=== PATIENT | male | born 1970 | race African-American/Black ===

== ENCOUNTER 2017-03-30 11:45 | Emergency (ER) | payer MEDICAID ==
[2017-03-30 11:56] VITALS: BP 135/79
--- NOTE | 2017-03-30 12:40 | ED Physician Documentation ---
PD HPI UPPER EXT INJURY - Stated complaint Stated Complaint: RT ARM PX - Chief complaint Chief Complaint: Ext Problem - History obtained from History obtained from: Patient - History of Present Illness Location: Other (For the last 2 weeks or so he has had pain on the lateral side of the right elbow radiating down to the dorsal right wrist and worse with extension of the right wrist. 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.) Review of Systems Constitutional: reports: Reviewed and negative Throat: reports: Reviewed and negative Cardiac: reports: Reviewed and negative PD PAST MEDICAL HISTORY - Past Medical History Past Medical History: No - Past Surgical History Past Surgical History: Yes Ortho: Knee replacement - Present Medications Home Medications: Ambulatory Orders Medication Instructions Recorded Confirmed Meloxicam [Mobic] 7.5 mg PO BIDWM PRN #15 tablet 03/30/17 Tennis Elbow Brace 1 diaph TD ONCE #1 03/30/17 - Allergies Allergies/Adverse Reactions: Allergies Allergy/AdvReac Type Severity Reaction Status Date / Time Penicillins Allergy Anaphylaxis Verified 03/30/17 11:53 - Social History Does the pt smoke?: Yes Smoking Status: Current every day smoker Does the pt drink ETOH?: Yes ETOH Use: Wine, Beer, Liquor Does the pt have substance abuse?: Yes Substance Use and Type: Marijuana - Immunizations Immunizations are current?: Yes - POLST Patient has POLST: No PD ED PE NORMAL - Vitals Vital signs reviewed: Yes - General General: Alert and oriented X 3, No acute distress - Extremities Extremities: Other (Right elbow is focally tender over the lateral epicondyle, He has relatively painless range of motion passively and actively but without resistance of the Right elbow and wrist. He has a lot of pain with forceful extension of the right wrist. He has normal radial pulse, symmetric sensation throughout the upper extremities.) - Neuro Neuro: Alert and oriented X 3, Normal speech - Psych Psych: Normal mood, Normal affect Results - Vitals Vitals: Vital Signs - 24 hr 03/30/17 11:49 Temperature 36.9 C Heart Rate 76 Respiratory 16 Rate Blood Pressure 135/79 H O2 Saturation 97 Oxygen O2 Source Room air Departure - Departure Disposition: 01 Home, Self Care Clinical Impression: Lateral epicondylitis of right elbow Condition: Good Record reviewed to determine appropriate education?: Yes Instructions: ED Epicondylitis Lateral Elbow Follow-Up: [facility] [Provider Group] - Within 1 week Prescriptions: Tennis Elbow Brace 1 diaph TD ONCE #1 Meloxicam [Mobic] 7.5 mg PO BIDWM PRN #15 tablet PRN Reason: Pain Comments: Your blood pressure was elevated today on check into the emergency department. This does not mean that you have hypertension, it is a common phenomenon to come to the emergency department and have elevated blood pressure. I recommend that she see your primary care physician within the week to have it rechecked when you are feeling better.
== END 2017-03-30 12:43 | disposition home or self-care (01) ==
LOC: ED 11:45
DX: M77.11 Lateral epicondylitis, right elbow (principal); R03.0 Elevated blood-pressure reading, without diagnosis of hypertension; F17.200 Nicotine dependence, unspecified, uncomplicated
CPT/HCPCS: 99283

== ENCOUNTER 2019-10-12 08:00 | Outpatient (CLI) | payer MEDICAID, OTHER ==
[2019-10-12 10:06] LABS: BASOPHILS % (AUTO) 0.9 %; EOSINOPHILS # (AUTO) 0.1 10^3/uL (0.0-0.7); EOSINOPHILS % (AUTO) 1.1 %; HGB - HEMOGLOBIN 15.5 g/dL (14.0-18.0); LYMPHOCYTES # (AUTO) 2.1 10^3/uL (1.5-3.5); LYMPHOCYTES % (AUTO) 45.3 %; MEAN CORPUSCULAR HEMOGLOBIN 31.4 pg (27.0-31.0); MEAN CORPUSCULAR VOLUME 89.7 fL (80.0-94.0); MEAN PLATELET VOLUME 9.1 fL (7.4-11.4); MONOCYTES # (AUTO) 0.5 10^3/uL (0.0-1.0); MONOCYTES % (AUTO) 11.3 %; NEUTROPHILS # (AUTO) 1.9 10^3/uL (1.5-6.6); NEUTROPHILS % (AUTO) 41.2 %; PLT - PLATELET COUNT 247 10^3/uL (130-450); RED BLOOD COUNT 4.94 10^6/uL (4.70-6.10); RED CELL DISTRIBUTION WIDTH 12.2 % (12.0-15.0); WHITE BLOOD COUNT 4.7 x10^3/uL (4.8-10.8)
[2019-10-12 10:19] LABS: ALBUMIN 4.5 g/dL (3.2-5.5); ALBUMIN/GLOBULIN RATIO 1.3 (1.0-2.2); BILIRUBIN,TOTAL 0.7 mg/dL (0.2-1.0); CALCIUM 9.6 mg/dL (8.5-10.3); CREATININE 0.8 mg/dL (0.6-1.2)
[2019-10-12 10:22] LABS: HB2 TOTAL 15.4 g/dL; HEMOGLOBIN A1C 0.74 g/dL; HEMOGLOBIN A1C % 6.5 % (4.6-6.2)
== END 2019-10-12 23:59 | disposition home or self-care (01) ==
LOC: LAB.R 08:00
PROVIDERS: ATTEND Registered Nurse
DX: E11.9 Type 2 diabetes mellitus without complications (principal); R03.0 Elevated blood-pressure reading, without diagnosis of hypertension
CPT/HCPCS: 80053; 83036; 84443; 85025